=== PATIENT | female | born 1985 | race Hispanic/Latino ===

== ENCOUNTER 2018-06-06 07:10 | Inpatient (IN) | payer BC ==
[2018-06-05 10:38] LABS: BASOPHILS % 0.2 % (0.0-1.0); EOSINOPHILS % 0.6 % (0.0-6.0); HEMOGLOBIN 11.7 g/dL (12.0-16.0); LYMPHOCYTES # (AUTO) 1.7 (1.0-3.2); LYMPHOCYTES % 32.8 % (18.0-39.1); MEAN CORPUSCULAR HEMOGLOBIN 28.7 pg (28-32); MEAN CORPUSCULAR HGB CONC 31.6 g/dL (31-35); MEAN CORPUSCULAR VOLUME 90.7 fL (81-99); MONOCYTES # (AUTO) 0.5 (0.2-0.8); MONOCYTES % 9.6 % (4.4-11.3); NEUTROPHILS # (AUTO) 2.9 (2.1-6.9); NEUTROPHILS % 56.6 % (38.7-80.0); PLATELET COUNT 239 x10e3/uL (140-360); RED BLOOD COUNT 4.08 x10e6/uL (3.6-5.1); RED CELL DISTRIBUTION WIDTH 13.9 % (11.7-14.4)
[2018-06-05 10:59] LABS: ALANINE AMINOTRANSFERASE 14 IU/L (0-55); ALBUMIN 3.9 g/dL (3.5-5.0); ALBUMIN/GLOBULIN RATIO 1.1 (0.8-2.0); ALKALINE PHOSPHATASE 71 IU/L (40-150); BLOOD UREA NITROGEN 14 mg/dL (7-26); BUN/CREATININE RATIO 23 (6-25); CARBON DIOXIDE 24 mmol/L (22-29); CHLORIDE 104 mmol/L (98-107); CREATININE, SERUM 0.61 mg/dL (0.57-1.11); EST GLOMERULAR FILTRATION RATE > 60 ML/MIN (60-); GLUCOSE 88 mg/dL (74-118); SODIUM 136 mmol/L (136-145)
[~2018-06-06] VITALS: Ht 152.4 cm; Wt 86.3 kg
[2018-06-06] MEDS ORDERED: CEFAZOLIN SOD 2 GM/D5W 50ML 50 ML IV ONE (07:32)
[2018-06-06] MEDS ORDERED: IOPAMIDOL 300MG/ML 50ML INFUS..BTL IV ONE (09:51)
--- NOTE | 2018-06-06 11:43 | Consultation ---
DATE OF CONSULTATION: June 06, 2018 SERVICE: Urology. ATTENDING: Dr. Holt. HISTORY OF PRESENT ILLNESS: This is a 33-year-old patient. She is coming for hysterectomy for fibroid uterus. She has also history of metrorrhagia. Patient has mild anemia. Patient had 1 child, which was normal vaginal delivery. SYSTEM REVIEW: Twelve systems reviewed. All of them were negative except for what is related to the current problem. FAMILY HISTORY: Noncontributory. SOCIAL HISTORY: No use of alcohol, illicit drugs, or tobacco. MEDICATIONS: See NOV. ALLERGIES TO MEDICATIONS: SEE NOV. PHYSICAL EXAMINATION: VITALS: Blood pressure 135/76, pulse 80, respirations 18. Temperature 98.5. GENERAL: Patient is alert and oriented x3. Does not seem to be in acute distress. HEAD: Symmetrical extraocular movement. NECK: No JVD or masses. CHEST: Clear. HEART: Regular. ABDOMEN: Soft. External genitalia unremarkable. EXTREMITIES: Lower extremities, no edema. Moves all. LABORATORY DATA: Sodium 136, potassium 4. Chloride 104, bicarb 24. Creatinine 0.61. BUN 14. White count 5000, hemoglobin 11.7. No urinalysis in the chart. IMPRESSION: 1. Fibroid uterus. 2. Anemia. PLAN: I am planning to do cystoscopy, retrograde. She does have a remote history of nephrolithiasis several years ago. Job#: [id number] [place]
--- NOTE | 2018-06-06 11:59 | Operative Report ---
DATE OF PROCEDURE: June 06, 2018 SERVICE: Urology. ATTENDING: Dr. Judy Holt. PREOPERATIVE DIAGNOSES 1. Fibroid uterus. 2. History of nephrolithiasis. POSTOPERATIVE DIAGNOSES 1. Fibroid uterus. 2. History of nephrolithiasis. 3. Mild hydronephrosis bilaterally without visible obstruction or stones. OPERATIONS PERFORMED 1. Cystoscopy and bilateral retrograde pyelograms under fluoroscopic control. 2. Placement of bilateral ureteral catheter. 3. Pelvic exam under anesthesia. 4. Interpretation of x-ray, radiologist not present. 5. Supervision of fluoroscopy, radiologist not present. ASSURANCE MANAGER INSURANCE: None. ANESTHESIA: General. CLINICAL INDICATION NOTE: A 33-year-old patient came for hysterectomy. The patient is planned to have cysto and retrograde as well as placement of ureteral catheters. She has a history of previous nephrolithiasis. DESCRIPTION OF PROCEDURE AND FINDINGS: After proper level of anesthesia was achieved, the patient was placed in lithotomy position, prepped and draped in sterile fashion. Urethra inspected is unremarkable. The neck is normal. Bladder mucosa is normal. No tumor or foreign body is identified. Open-ended catheters were inserted bilaterally and retrograde pyelograms were done. On the left side, there is minimal hydronephrosis; however, it does drain. On the right side, there is less but also not very prominent, so elected not to place a double-J stent. Open-ended catheter was advanced up into the kidney on both sides. The bladder was irrigated. The scope was removed. A 16-[place] Melo catheter was inserted and the ureteral catheters were inserted into the Melo. Following this, pelvic exam was done under anesthesia. No adnexal masses palpable in the midline. Does have the uterus quite enlarged. Job#: [id number]
[2018-06-06] MEDS ORDERED: NALOXONE HCL INJ 0.4 MG/ML AMP IV PRN (12:15)
[2018-06-06] MEDS ORDERED: HYDROMORPHONE 1MG/1ML INJ ONE (12:42)
[2018-06-06] MEDS ORDERED: MORPHINE SULFATE 1 MG/ML 30ML PCA ONE (12:48)
[2018-06-06] MEDS ORDERED: SEVOFLURANE INHAL SOLN 250 ML PEN BTL ONE (13:07)
[2018-06-06] MEDS ORDERED: ONDANSETRON HCL INJ 2 MG/ML VIAL ONE (13:07)
[2018-06-06] MEDS ORDERED: ROCURONIUM BROMIDE 10 MG/ML 5ML VIAL ONE (13:07)
[2018-06-06] MEDS ORDERED: GLYCOPYRROLATE INJ 1MG/ 5 ML SYR ONE (13:07)
[2018-06-06] MEDS ORDERED: LIDOCAINE HCL 2% LOCAL INJ 5 ML SDV VIAL INJ ONE (13:07)
[2018-06-06] MEDS ORDERED: PROPOFOL IV EMULSION 10 MG/ML 20 ML VIAL ONE (13:07)
[2018-06-06] MEDS ORDERED: ACETAMINOPHEN 1000 MG/100 ML IV ONE (13:07)
[2018-06-06] MEDS ORDERED: DEXAMETHASONE SOD PHOS INJ 4 MG/ML VIAL ONE (13:07)
[2018-06-06] MEDS ORDERED: NEOSTIGMINE 5 MG/5ML SYR ONE (13:07)
[2018-06-06] MEDS ORDERED: ZOLPIDEM TARTRATE 5 MG TAB PO PRN (14:30)
[2018-06-06] MEDS ORDERED: DIPHENHYDRAMINE HCL 25 MG CAP PO PRN (14:30)
[2018-06-06] MEDS ORDERED: ONDANSETRON HCL INJ 2 MG/ML VIAL IV PRN (14:30)
[2018-06-06] MEDS ORDERED: BISACODYL 10 MG SUPP PR PRN (14:30)
[2018-06-06] MEDS ORDERED: MIDAZOLAM HCL 2 MG/2 ML VIAL ONE (14:53)
[2018-06-06] MEDS ORDERED: MORPHINE SULFATE INJ 10 MG/ML ONE (14:53)
[2018-06-06] MEDS ORDERED: FENTANYL CITRATE/PF 100MCG/2 ML INJ ONE (14:53)
--- NOTE | 2018-06-06 15:12 | Operative Report ---
DATE OF PROCEDURE: PREOPERATIVE DIAGNOSES 1. Fibroid uterus. 2. Abdominal pain. POSTOPERATIVE DIAGNOSES 1. Fibroid uterus. 2. Abdominal pain. OPERATION PERFORMED: Total abdominal hysterectomy. LICENSED AUDIOLOGIST: . COMPLICATIONS: None. ESTIMATED BLOOD LOSS: 300 mL. DETAILS OF PROCEDURE: Patient was taken to the OR. General anesthesia was placed. She was prepped and draped in the normal sterile fashion, placed in dorsal supine position. The indwelling Melo catheter was placed inside the bladder for drainage. Midline subumbilical incision was made with a scalpel and was extended around this umbilicus using the same instrument. Rectus fascia was opened and the midline was identified and peritoneum entering using stretch of 2 fingers; the following findings, a large 34-36 weeks size uterus, multiple uterine fibroids, normal looking ovaries. Patient was placed in Trendelenburg position and the bowels were retracted upwards using moist laps and uterus was delivered outside the wound. Using the LigaSure, the apex of the broad ligament as well as the medial to the ovaries were clamped, pedicle secured, and cut. Same was repeated on the other side. The broad ligament was opened after cutting the round ligament using the LigaSure and anterior fold of the broad ligament was opened with Metzenbaum scissors at the level of the lower segment and bladder was identified and resected using gentle sweeps of the Ray-Jacob wrapped on the index, wrapped on the ring forceps. Curved Zeppelin clamps were applied at the uterine vessels of the level of uterine angle on both sides, cut, the pedicle secured with transfixion sutures of Vicryl 0. Straight Zeppelin clamps were applied medial to the uterine vessels, clamped and cut, pedicle secured in the same manners. Following this, the right angle Zeppelin clamp applied at the apex of the vagina just below the cervix and the uterus was freed using Tere scissors, sent to pathology. The vagina was closed with interlocking stitch of Vicryl 0. Hemostasis was found to be adequate. Suction and irrigation of the peritoneal cavity with warm saline. Rectus fascia was closed in the midline using PDS 0 Endoloop, 2 sutures were used. Subcutaneous fat was approximated using plain catgut 0 and skin was closed with fredy. Patient tolerated the procedure well. Laps, instrument, and needle count was correct x2 at the end of the procedure. Job#: [id number] [place]
[2018-06-06 16:10] LABS: HEMATOCRIT 31.9 % (34.2-44.1); HEMOGLOBIN 10.1 g/dL (12.0-16.0)
[2018-06-06 16:50] VITALS: BP 109/57
[2018-06-06 17:49] VITALS: BP 109/57
[2018-06-06] MEDS: LACTATED RINGER'S 1,000 ML IV SCH ×2 (19:01→22:27)
[2018-06-06 20:00] VITALS: BP 116/58
[2018-06-06] MEDS: MORPHINE SULFATE 1 MG/ML 30ML PCA IV PRN (22:20)
[2018-06-07] VITALS (8 sets, daily range): BP systolic 105–136; BP diastolic 51–73
[2018-06-07] MEDS: LACTATED RINGER'S 1,000 ML IV SCH ×3 (04:50→14:27)
[2018-06-07 05:19] LABS: BASOPHILS % 0.1 % (0.0-1.0); HEMATOCRIT 26.8 % (34.2-44.1); HEMOGLOBIN 8.7 g/dL (12.0-16.0); LYMPHOCYTES # (AUTO) 2.4 (1.0-3.2); LYMPHOCYTES % 24.4 % (18.0-39.1); MEAN CORPUSCULAR HEMOGLOBIN 29.3 pg (28-32); MEAN CORPUSCULAR HGB CONC 32.5 g/dL (31-35); MEAN CORPUSCULAR VOLUME 90.2 fL (81-99); MONOCYTES # (AUTO) 1.6 (0.2-0.8); MONOCYTES % 16.3 % (4.4-11.3); NEUTROPHILS # (AUTO) 5.9 (2.1-6.9); NEUTROPHILS % 58.9 % (38.7-80.0); PLATELET COUNT 212 x10e3/uL (140-360); RED BLOOD COUNT 2.97 x10e6/uL (3.6-5.1); RED CELL DISTRIBUTION WIDTH 14.1 % (11.7-14.4)
[2018-06-07 06:57] LABS: LYMPHOCYTES % (MANUAL) 23 % (19-48); MONOCYTES % (MANUAL) 13 % (3.4-9.0); NEUTROPHILS % (MANUAL) 64 % (40-74)
[2018-06-07 06:58] LABS: HYPOCHROMASIA SLIGHT; PLATELET ESTIMATE ADEQUATE; PLATELET MORPHOLOGY COMMENT NORMAL; RBC MORPHOLOGY COMMENT NORMAL
[2018-06-07] MEDS: MORPHINE SULFATE 1 MG/ML 30ML PCA IV PRN (08:47)
[2018-06-07] MEDS: HYDROCODONE/APAP 5MG-325MG TAB PO PRN (18:25)
[2018-06-07] MEDS ORDERED: ACETAMINOPHEN 325 MG TAB PO PRN (21:00)
[2018-06-07] MEDS: KETOROLAC TROMETHAMINE 30 MG/ML VIAL IM PRN (21:00)
[2018-06-07 21:10] LABS: BASOPHILS % 0.2 % (0.0-1.0); LYMPHOCYTES # (AUTO) 1.7 (1.0-3.2); LYMPHOCYTES % 19.2 % (18.0-39.1); MEAN CORPUSCULAR HEMOGLOBIN 28.9 pg (28-32); MEAN CORPUSCULAR VOLUME 90.3 fL (81-99); MONOCYTES # (AUTO) 1.1 (0.2-0.8); NEUTROPHILS # (AUTO) 5.9 (2.1-6.9); NEUTROPHILS % 67.4 % (38.7-80.0); PLATELET COUNT 184 x10e3/uL (140-360); RED BLOOD COUNT 2.77 x10e6/uL (3.6-5.1); RED CELL DISTRIBUTION WIDTH 13.9 % (11.7-14.4)
[2018-06-07 21:12] LABS: CLARITY,URINE CLEAR (CLEAR); COLOR,URINE YELLOW (YELLOW); LEUKOCYTE ESTERASE ,URINE NEGATIVE (NEGATIVE); NITRITE,URINE NEGATIVE (NEGATIVE)
[2018-06-07 21:13] LABS: BILIRUBIN,URINE NEGATIVE (NEGATIVE); KETONES,URINE 1+ (NEGATIVE); PROTEIN,URINE DIPSTICK NEGATIVE (NEGATIVE); URINE UROBILINOGEN 0.2 mg/dL (0.2 - 1)
--- NOTE | 2018-06-07 21:51 | Diagnostic Imaging Report ---
CHEST SINGLE (PORTABLE), 06/07/2018 8:46 PM Technique: CHEST SINGLE (PORTABLE) Comparison: None available. Clinical history: Low-grade temperature Findings: See Impression Impression: Low lung volumes and portable technique result in accentuation of the cardiomediastinal silhouette and bibasilar vascular crowding/atelectasis. If there is ongoing clinical concern for pneumonia, recommend follow-up upright PA and lateral with improved inspiratory effort. Signed by: Dr Amada Leon MD on 06/07/2018 9:47 PM
[2018-06-08] VITALS (8 sets, daily range): BP systolic 102–114; BP diastolic 54–69
[2018-06-08 05:08] LABS: HEMOGLOBIN 7.2 g/dL (12.0-16.0)
[2018-06-08 05:12] LABS: HEMATOCRIT 22.2 % (34.2-44.1)
[2018-06-08] MEDS: LACTATED RINGER'S 1,000 ML IV SCH ×3 (06:27→08:23)
[2018-06-08] MEDS: HYDROCODONE/APAP 5MG-325MG TAB PO PRN ×4 (06:53→21:50)
[2018-06-08] MEDS ORDERED: SODIUM CHLORIDE 0.9% 250ML 250 ML IV ONE (10:00)
[2018-06-09 00:18] VITALS: BP 99/55
[2018-06-09] MEDS: HYDROCODONE/APAP 5MG-325MG TAB PO PRN ×3 (01:37→12:05)
[2018-06-09 05:25] LABS: HEMATOCRIT 28.2 % (34.2-44.1); HEMOGLOBIN 9.3 g/dL (12.0-16.0)
[2018-06-09 05:32] VITALS: BP 116/60
[2018-06-09 08:10] VITALS: BP 114/53
--- NOTE | 2018-06-09 09:51 | Discharge Summary ---
DIAGNOSES 1. Fibroid uterus. 2. Total abdominal hysterectomy. The patient was a 53 year old who came in with uterine bleeding and palpable abdominal mass. She had underwent a total abdominal hysterectomy uneventfully. She had cystoscopy and ureteral stent placement before surgery, and that was removed at the end of the surgery. Her recovery was uncomplicated apart from anemia. She was given 2 units of packed RBCs during her stay. She was discharged home. TRISTIAN EISENBERG MD Job#: [id number] [place]
[2018-06-09] MEDS ORDERED: TYLENOL WITH C1 EACH PO (10:37)
[2018-06-09] MEDS ORDERED: FERRALET 90 DU1 EACH PO (10:46)
[2018-06-09 11:18] VITALS: BP 114/53
[2018-06-09] MEDS: KETOROLAC TROMETHAMINE 30 MG/ML VIAL IM PRN (11:22)
[2018-06-09 12:17] VITALS: BP 121/60
== END 2018-06-09 13:08 | disposition home or self-care (01) | DRG 742 ==
LOC: OR 07:10 → PACU V 14:29 → MED/SURG 16:25
PROVIDERS: ADMIT Obstetrics & Gynecology; ATTEND Obstetrics & Gynecology
PROC: 0UT70ZZ Resection of Bilateral Fallopian Tubes, Open Approach (ICD-10-PCS; 2018-06-06)
PROC: BT141ZZ Fluoroscopy of Kidneys, Ureters and Bladder using Low Osmolar Contrast (ICD-10-PCS; 2018-06-06)
PROC: 0T788DZ Dilation of Bilateral Ureters with Intraluminal Device, Via Natural or Artificial Opening Endoscopic (ICD-10-PCS; 2018-06-06)
PROC: 30233N1 Transfusion of Nonautologous Red Blood Cells into Peripheral Vein, Percutaneous Approach (ICD-10-PCS; 2018-06-06)
PROC: 0UT90ZZ Resection of Uterus, Open Approach (ICD-10-PCS; principal; 2018-06-06 10:14)
PROC: 0UT20ZZ Resection of Bilateral Ovaries, Open Approach (ICD-10-PCS; 2018-06-06 10:14)
DX: D25.2 Subserosal leiomyoma of uterus (principal); N13.30 Unspecified hydronephrosis; Z87.442 Personal history of urinary calculi; F41.9 Anxiety disorder, unspecified; D64.9 Anemia, unspecified; R31.9 Hematuria, unspecified; R19.00 Intra-abdominal and pelvic swelling, mass and lump, unspecified site
CPT/HCPCS: 36415; 36430; 71045; 74420; 80053; 81001; 84702; 85014; 85018; 85025; 86850; 86900; 86920; 88307; J1100; J1170; J1885; J2001; J2250; J2270; J2405; J7050; J7120; P9016